=== PATIENT | female | born 1995 | race Asian ===

== ENCOUNTER 2016-09-12 20:46 | Emergency (ER) | payer OTHER ==
[~2016-09-12] VITALS: Ht 172.7 cm; Wt 97.3 kg
[2016-09-12 20:55] VITALS: BP 136/88; PULSE 83; TEMP 36.8; O2SAT 96; Ht 172.7 cm; Wt 97.3 kg
== END 2016-09-12 22:00 | disposition left against medical advice (07) ==
LOC: C.EDB 20:47
DX: R50.9 Fever, unspecified (principal)

== ENCOUNTER 2016-11-03 00:10 | Emergency (ER) | payer BC ==
[~2016-11-03] VITALS: Ht 172.7 cm; Wt 100.2 kg
[2016-11-03 00:14] VITALS: Ht 172.7 cm; Wt 100.2 kg
[2016-11-03] MEDS ORDERED: ACETAMINOPHEN 500 MG TAB PO STA (00:25)
[2016-11-03] MEDS ORDERED: SODIUM CHLORIDE 0.9% 1000ML 1,000 ML IV STA (00:25)
[2016-11-03] MEDS ORDERED: DEXAMETHASONE SOD INJ 10 MG/ML VIAL IV ONE (00:30)
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
[2016-11-03 01:15] VITALS: O2SAT 97
[2016-11-03 01:19] LABS: HEMATOCRIT 39.3 % (37-47); MEAN CELL VOLUME 84.5 fL (80-100); MEAN CORPUSCULAR HEMOGLOBIN 27.7 pg (25-34); MEAN CORPUSCULAR HGB CONC 32.8 g/dl (32-36); PLATELET COUNT 208 K/uL (130-400); RED BLOOD COUNT 4.65 M/uL (4.2-5.4)
[2016-11-03] MEDS ORDERED: CEFTRIAXONE SOD INJ 1 GM ADDVIAL IV STA (01:25)
[2016-11-03] MEDS ORDERED: AZITHROMYCIN IV 500 MG in DEXTROSE 5% 250ML 250 ML IV ONE (01:30)
[2016-11-03 01:42] LABS: CALCIUM 8.4 mg/dl (8.5-10.1); CREATININE 0.97 mg/dl (0.60-1.20); POTASSIUM 3.4 mmol/L (3.5-5.1)
[2016-11-03 01:49] LABS: BASO % 0.3 %; BASO ABS # 0.02 K/uL (0-0.2); COMPLETE YES; EOS % 0.1 %; IG% 0.3 %; LYMPH % 19.3 %; LYMPH ABS # 1.31 K/uL (1.2-3.4); MONO % 7.8 %; NEUT % 72.2 %
[2016-11-03] MEDS ORDERED: AZIT500T26 PO (02:34)
[2016-11-03 04:41] VITALS: BP 109/78; PULSE 70; TEMP 37.2; O2SAT 97
--- NOTE | 2016-11-03 07:33 | DIAGNOSTIC IMAGING REPORT ---
CHEST 2 VIEWS ROUTINE CLINICAL HISTORY: cough COMPARISON STUDY: 11/03/2016 FINDINGS: The cardiac images all contours remain stable. There is an area of airspace consolidation within the superior segment of the right lower lobe. The findings are consistent with a pneumonia. Films subsequent to treatment are recommended in follow-up.[ IMPRESSION: Focal airspace opacity within the right lower lobe, consistent with pneumonia. Films subsequent to treatment are recommended in follow-up Electronically signed by: Bud Bateman M.D. 11/03/2016 7:32 AM Dictated Date/Time: 11/03/2016 7:31 AM
--- NOTE | 2016-11-03 07:34 | DIAGNOSTIC IMAGING REPORT ---
CHEST ONE VIEW PORTABLE CLINICAL HISTORY: sob COMPARISON STUDY: No previous studies for comparison. FINDINGS: There is a peripheral right midlung zone airspace opacity consistent with pneumonia. Films subsequent to treatment are recommended in follow-up. The heart is normal in size. There is no failure. There are no pleural effusions.[ IMPRESSION: Right midlung zone airspace opacity consistent with pneumonia Electronically signed by: Bud Bateman M.D. 11/03/2016 7:33 AM Dictated Date/Time: 11/03/2016 7:32 AM
== END 2016-11-03 04:42 | disposition home or self-care (01) ==
LOC: C.EDB 00:12
DX: J18.9 Pneumonia, unspecified organism (principal); F41.9 Anxiety disorder, unspecified; J45.909 Unspecified asthma, uncomplicated; Z88.8 Allergy status to other drugs, medicaments and biological substances; Z87.828 Personal history of other (healed) physical injury and trauma